=== PATIENT | female | born 1970 | race Caucasian/White ===

== ENCOUNTER → 2018-07-29 | Outpatient (CLI) | payer OTHER ==
[~2018-07-29] MED LIST: DOXY100C49; ERGO400C PO; FOLI0.4T2 PO; HSC125B15; MULT-963 PO; OMEG-12 PO; PHEN-452 PO; PRM25T; ZLP5T PO
--- NOTE | 2018-07-29 18:55 | Diagnostic Imaging Report ---
EXAMINATION: Digital mammogram bilateral screening with 3D tomosynthesis and computer-aided detection (CAD) system. INDICATION: Screening. COMPARISON: This study was compared to the prior exam of 09/05/2007. At this time, there are no current complaints. FINDINGS: The fibroglandular tissue in both breasts is heterogeneously dense. This does limit the sensitivity of this exam. On the MLO view of the right breast, there is a well-circumscribed roughly 8 cm oval density in the mid portion of the breast lying roughly 10 cm deep to the nipple. There is a skin marker in this region. There appears to be a corresponding oval density on the CC and XCC views lying just lateral to midline. This oval density was not clearly present on the prior exam. I do suspect it is a benign process such as a cyst or a lymph node. Even so, I would recommend that ultrasound of the right breast be performed to better characterize this finding. There is no primary or secondary sign of malignancy noted otherwise. IMPRESSION: Ultrasound would be recommended to better evaluate the benign-appearing newly developed nodular density in the 8-9 o'clock position of the right breast. ACR BI-RADS Category 0: Incomplete. (Needs additional imaging evaluation). Result letter will be mailed to the patient. Note: At least 10% of breast cancer is not imaged by mammography. Dictated by: Dictated on workstation # [id number]
== END ==
LOC: RAD 10:11
PROVIDERS: ATTEND Family Medicine
DX: Z12.31 Encounter for screening mammogram for malignant neoplasm of breast (principal); R92.8 Other abnormal and inconclusive findings on diagnostic imaging of breast
CPT/HCPCS: 77067